=== PATIENT | male | born 1985 | race Caucasian/White ===

== ENCOUNTER → 2017-02-13 | Outpatient (CLI) | payer BC ==
--- NOTE | 2017-02-13 19:11 | CT ---
EXAMINATION TYPE: CT chest wo con DATE OF EXAM: 02/13/2017 7:02 PM COMPARISON: NONE HISTORY: Cough x 1 year +. CT DLP: 291.60 mGycm Automated exposure control for dose reduction was used. FINDINGS: The lungs are clear of infiltrate. There is no evidence of a pulmonary mass. Heart size is normal. Th ere is no pericardial effusion. There is no pleural effusion. There are no hilar masses. There is no mediastinal adenopathy. The bony thorax is intact. There is no sign of a pulmonary nodule. IMPRESSION: NEGATIVE CT SCAN OF THE CHEST. NO EVIDENCE OF ANY INTERSTITIAL LUNG DISEASE.
== END | disposition home or self-care (01) ==
LOC: RADCTMAIN 18:48 → MERGE 19:00
PROVIDERS: ATTEND Family Medicine
DX: J94.8 Other specified pleural conditions (principal)
CPT/HCPCS: 71250